=== PATIENT | male | born 1960 | race Two or more races ===

== ENCOUNTER 2022-09-25 11:28 | Observation (INO) ==
--- NOTE | 2022-09-25 12:43 | DR.EXTPAIN ---
HPI Time seen Time Seen by Provider: 09/25/22 12:41 PCP Primary Care Physician: ADRI ESPINOZA HPI Comment HPI Comment: A 62 y/o malepresenting with c/o RUQ pain since about 0200 hrs. yesterday, THis is described as sharp and throbing but with no radiation. He denies nausea or vomiting. He has had poor appetite since yesterday. Complaint/Symptoms Chief Complaint:: PT C/O ABDOMINAL PAIN AT RUQ, NO BM X2 DAYS, POOR APPETITE Self Treatment fo Chief Complaint: PT HAS TAKEN A PEPCID 20 MG THIS MORNING WELL HIS REGULAR MEDS COVID-19 Coronavirus risk:travel/contact w/high risk person: No Has patient experienced Coronavirus symptoms: No Nurses notes reviewed Nurses Notes Review: Yes Source History Provided: Patient and Family Member Mode of arrival Mode of Arrival: Ambulatory Timing Onset of Chief Complaint: 09/24/22 Context History of: None Associated signs and symptoms Associated Signs and Symptoms: None PMH PMH Past Medical History: Yes Past Medical History: Arthritis, GERD and Hypertension Past Surgical History: No Family History History of Family Medical Conditions: No Social History Does patient currently use any type of tobacco product: No Have you used tobacco products in the last 12 months: No Does any household member use tobacco: No Alcohol Use: None Do you use any recreational Drugs:: No Lives With: Spouse and Family Lives Where: Home Travel Risk Coronavirus risk:travel/contact w/high risk person: No Has patient experienced Coronavirus symptoms: No Infectious screening In the last 2 months have you had wt loss of >10#?: NO Have you had fever, night sweats or hemotysis?: No Have you traveled outside the country in the last 6 months?: No Isolation: Standard ROS Review of Systems Constitutional: No Symptoms Reported Eyes: No Symptoms Reported ENTM: No Symptoms Reported Respiratoy: No Symptoms Reported Cardiovascular: No Symptoms Reported Gastrointestinal/Abdominal: Abdominal Pain Genitourinary: No Symptoms Reported Neurological: No Symptoms Reported Musculoskeletal: No Symptoms Reported Integumentary: No Symptoms Reported Hematologic/Lymphatic: No Symptoms Reported Endocrine: No Symptoms Reported Psychiatric: No Symptoms Reported All Other Systems: Reviewed and Negative PE Vital Signs Vitals: Temperature 99.2 F Pulse Rate 86 Respiratory Rate 18 Blood Pressure [Right Arm] 183/86 Blood Pressure 130/68 O2 Sat by Pulse Oximetry 97 General Limitations: No Limitations General Appearance: Alert and In No Apparent Distress Head Head Exam: Normal Inspection, Atraumatic and Normocephalic Eyes Eye exam: Normal Appearance and EOMI ENT ENT Exam: Normal Exam, Normal Oropharynx, Normal External Ear Exam and Mucous Membranes Moist Neck Neck Exam: Normal Inspection, Full ROM and Trachea Midline Chest Chest Inspection: Normal Inspection and Symmetric Chest Wall Rise Respiratory Respiratory Exam: Normal Lung Sounds Bilat Cardiovascular Cardiovascular Exam: Regular Rate, Normal Rhythm, Normal Heart Sounds, +S1 and +S2 Abdominal Exam Abdominal Exam: Normal Inspection, Normal Bowel Sounds, Soft and Tenderness; negative Distention, Guarding, Rebound, Rigidity, Dimnished Bowel Sounds, Hyperactive Bowel Sounds, Hypoactive Bowel Sounds, Organomegaly, Trauma, Incision, Ascites, Mass, Bruit, Pulsatile Mass or Hernia Abdominal Tenderness: RUQ Extremities Extremities Exam: Normal Inspection and Full ROM Back Back Exam: Normal Inspection and Full ROM Neurological Neurological Exam: Alert, Oriented X3 and CN II-XII Intact Psychiatric Psychiatric Exam: Normal Affect and Normal Mood Skin Skin Exam: Dry, Intact and Normal Color COURSE Treatment Treatment: His labs. were reviewed with him and his spouse. Ihad spoken with Dr. Freeman to admit and have Dr. Bateman consult but I was speaking with Dr. Bateman, he disagreed with this and asked that the pt. be admited to him and that he would take care of him (the pt.). Reevaluation 1st: Unchanged Education/Counseling Education/Counseling: Patient, Family, Education and Counseling Educated On: Treatment, Diagnosis, Prognosis and Needs for Follow Up ROR Labs Reviewed Result Diagrams: 09/25/22 13:34 09/25/22 13:34 Laboratory: WBC 16.1 X10^3/uL (3.6-10.0) H 09/25/22 13:34 RBC 4.99 X10^6/uL (4.7-6.0) 09/25/22 13:34 Hgb 13.7 g/dL (13.5-18.0) 09/25/22 13:34 Hct 40.9 % (42.0-54.0) L 09/25/22 13:34 MCV 81.9 fL (80.0-100.0) 09/25/22 13:34 MCH 27.5 pg (27.0-34.0) 09/25/22 13:34 MCHC 33.6 g/dL (33.0-35.0) 09/25/22 13:34 RDW 14.4 % (11.6-16.5) 09/25/22 13:34 Plt Count 262 X10^3/uL (150.0-450.0) 09/25/22 13:34 MPV 7.9 fL (7.4-11.0) 09/25/22 13:34 Neut % (Auto) 73.9 % (42.0-75.0) 09/25/22 13:34 Lymph % (Auto) 13.6 % (21.0-51.0) L 09/25/22 13:34 [place] % (Auto) 10.7 % (0.0-13.0) 09/25/22 13:34 Eos % (Auto) 1.3 % (0.9-2.9) 09/25/22 13:34 Baso % (Auto) 0.5 % (0.2-1.0) 09/25/22 13:34 Neut # (Auto) 11.9 x10^3/uL (2.2-4.8) H 09/25/22 13:34 Lymph # (Auto) 2.2 X10^3/uL (1.3-2.9) 09/25/22 13:34 [place] # (Auto) 1.7 x10^3/uL (0.3-0.8) H 09/25/22 13:34 Eos # (Auto) 0.2 x10^3/uL (0.0-0.2) 09/25/22 13:34 Baso # (Auto) 0.1 X10^3/uL (0.0-0.1) 09/25/22 13:34 Absolute Nucleated RBC 0.0 /100WBC 09/25/22 13:34 Sodium 134 mmol/L (136-145) L 09/25/22 13:34 Corrected Sodium TNP 09/25/22 13:34 Potassium 3.5 mmol/L (3.5-5.1) 09/25/22 13:34 Chloride 98 mmol/L (98-107) 09/25/22 13:34 Carbon Dioxide 30.0 mmol/L (21-32) 09/25/22 13:34 BUN 13 mg/dL (7-18) 09/25/22 13:34 Creatinine 1.13 mg/dL (0.70-1.30) 09/25/22 13:34 Est GFR (MDRD) Af Amer > 60 (>60) 09/25/22 13:34 Est GFR (MDRD) Non-Af > 60 (>60) 09/25/22 13:34 Glucose 95 mg/dL (65-99) 09/25/22 13:34 Calcium 8.6 mg/dL (8.5-10.1) 09/25/22 13:34 Corrected Calcium TNP 09/25/22 13:34 Total Bilirubin 0.80 mg/dL (0.2-1.0) 09/25/22 13:34 AST 81 Units/L (15-37) H 09/25/22 13:34 ALT 87 Units/L (12-78) H 09/25/22 13:34 Alkaline Phosphatase 107 Units/L (46-116) 09/25/22 13:34 Total Protein 7.6 g/dL (6.4-8.2) 09/25/22 13:34 Albumin 3.5 g/dL (3.4-5.0) 09/25/22 13:34 Globulin 4.1 g/dL (2.5-4.5) 09/25/22 13:34 Albumin/Globulin Ratio 0.9 Ratio (1.1-2.1) L 09/25/22 13:34 Specimen Type Clean catch urine 09/25/22 13:15 Urine Color Dark yellow (YELLOW) 09/25/22 13:15 Urine Appearance Clear (CLEAR) 09/25/22 13:15 Urine pH 6.0 (5.0 - 8.0) 09/25/22 13:15 Ur Specific [place] 1.020 (1.000-1.030) 09/25/22 13:15 Urine Protein 2+ (NEGATIVE) 09/25/22 13:15 Urine Glucose (UA) Negative (NEGATIVE) 09/25/22 13:15 Urine Ketones Negative (NEGATIVE) 09/25/22 13:15 Urine Blood 1+ (NEGATIVE) 09/25/22 13:15 Urine Nitrite Negative (NEGATIVE) 09/25/22 13:15 Urine Bilirubin Negative (NEGATIVE) 09/25/22 13:15 Urine Urobilinogen 2+ (NORMAL) 09/25/22 13:15 Ur Leukocyte Esterase Negative (NEGATIVE) 09/25/22 13:15 Urine RBC 0-2 /HPF (0-3) 09/25/22 13:15 Urine WBC 0-2 /HPF (0-5) 09/25/22 13:15 Ur Squamous Epith Cells Few /HPF (NEGATIVE) 09/25/22 13:15 Urine Bacteria Trace /HPF (NEGATIVE) 09/25/22 13:15 Urine Mucus Few /HPF (NEGATIVE) 09/25/22 13:15 Ur Culture Indicated? No/not indicated 09/25/22 13:15 Opioid Opioid Risk Tool Age (Girish box if 16-45): No History of Preadolescent Sexual Abuse: No Total: 0 Total Score Risk Category: Low Risk Copyright: Cristian BENITEZ predicting aberrant behaviors Discharge Plan Diagnosis Discharge Problem: Acute cholecystitis Discharge Plan Patient Disposition: ADMITTED INPATIENT Condition: Stable Prescriptions: No Action hydrochlorothiazide 12.5 mg capsule 1 cap PO QDAY olmesartan 40 mg tablet 1 tab PO QDAY metoprolol tartrate 25 mg tablet 1 tab PO BID Health Concerns: Post Hospitalization: new medications and changes needed to prevent readmission or further decline. Pt educated and given instructions on all concerns. Plan of Treatment: Continue with present treatment and follow up plan. Pt is to keep follow up appointment as instructed and take medications as ordered. Orders to Discharge Patient Discharge Orders: Discharge (Routine); Ordered 09/25/22 Ordered By: REJI BAUTISTA Transfer (Routine); Ordered 09/25/22 Ordered By: REJI BAUTISTA Follow ups/Referrals Follow ups/Referrals: Agnes SANABRIA [Primary Care Provider] - 3 days ADDITIONAL NOTES Additional Notes Additional Notes: Name: Juana CRUZ#: [id number]: [id number]: 1960ex: MLocation: EROrder Number(s): [id number](s):ABDOMEN/PELVIS W/O CON Ordering Physician: REJI BAUTISTA Primary Care: Agnes SANABRIA Service Date: 09/25/22 Service Time: 1301 HISTORY right side abd pains STUDY CT ABDOMEN/PELVIS W/O CON COMPARISON July 27, [address] was acquired from the lung bases through the pelvis without IV contrast; multiplaner reformats are generated from the original axial data. FINDINGS Hypostatic atelectatic lung changes. No pericardial effusion or significant pleural effusion identified. Distended gallbladder with wall thickening and pericholecystic stranding consistent with acute cholecystitis. Noncontrast liver attenuation is predominantly homogeneous. No intrahepatic biliary dilatation is identified. The spleen is normal in size and attenuation. Normal attenuation of the pancreas with no inflammatory changes Adrenal glands are symmetric. No radiopaque stones or hydronephrosis of the right or left kidney. Exophytic cyst of the lower pole the right kidney measures 4.7 cm. Secondary sub cm exophytic cyst is observed at the midpole the right kidney. No evidence of bowel obstruction. Mild diverticular disease of the colon without active inflammatory changes The appendix is normal.. The aorta is normal in caliber. There are no enlarged intraabdominal lymph nodes. The bladder is normal in morphology. No asymmetric wall thickening. The prostate gland is average size for age. No free fluid or pelvic lymphadenopathy. No aggressive bony lesions or acute osseous pathology. IMPRESSION Imaging findings compatible with acute cholecystitis Colonic diverticulosis without diverticulitis Right renal cysts Radiation dose reduction was achieved through individualized adjustment of kVP and/or mA, through adaptive statistical iterative reconstruction, and/or through automated tube current modulation. Electronically signed by: SRINIVAS SALAS (Sep 25, 2022 13:51:43) Report Electronically signed: 09/25/22 [id number] CC: Reji Bautista
[2022-09-25] MEDS ORDERED: NS 1,000 ML IV 1,000 ML IV ONE (13:09)
[2022-09-25] MEDS ORDERED: NS 1,000 ML IV 1,000 ML ONE ×2 (13:17→14:56)
[2022-09-25 13:46] LABS: BILIRUBIN,URINE NEGATIVE (NEGATIVE); BLOOD/HEMOGLOBIN,URINE 1+ (NEGATIVE); GLUCOSE, URINE NEGATIVE (NEGATIVE); KETONES,URINE NEGATIVE (NEGATIVE); LEUKOCYTE ESTERASE ,URINE NEGATIVE (NEGATIVE); NITRITES,URINE NEGATIVE (NEGATIVE); PROTEIN,URINE 2+ (NEGATIVE); UROBILINOGEN,URINE 2+ (NORMAL)
[2022-09-25 13:46] LABS: BASOPHILS # (AUTO) 0.1 X10^3/uL (0.0-0.1); BASOPHILS % (AUTO) 0.5 % (0.2-1.0); EOSINOPHILS # (AUTO) 0.2 x10^3/uL (0.0-0.2); EOSINOPHILS % (AUTO) 1.3 % (0.9-2.9); HEMATOCRIT 40.9 % (42.0-54.0); HEMOGLOBIN 13.7 g/dL (13.5-18.0); LYMPHOCYTES # (AUTO) 2.2 X10^3/uL (1.3-2.9); LYMPHOCYTES % (AUTO) 13.6 % (21.0-51.0); MEAN CORPUSCULAR HEMOGLOBIN 27.5 pg (27.0-34.0); MEAN CORPUSCULAR HGB CONC 33.6 g/dL (33.0-35.0); MEAN CORPUSCULAR VOLUME 81.9 fL (80.0-100.0); MEAN PLATELET VOLUME 7.9 fL (7.4-11.0); MONOCYTES # (AUTO) 1.7 x10^3/uL (0.3-0.8); MONOCYTES % (AUTO) 10.7 % (0.0-13.0); NEUTROPHILS # (AUTO) 11.9 x10^3/uL (2.2-4.8); NEUTROPHILS % (AUTO) 73.9 % (42.0-75.0); RED BLOOD COUNT 4.99 X10^6/uL (4.7-6.0); RED CELL DISTRIBUTION WIDTH 14.4 % (11.6-16.5); WHITE BLOOD COUNT 16.1 X10^3/uL (3.6-10.0)
--- NOTE | 2022-09-25 13:52 | CT ---
HISTORYright side abd painsSTUDYCT ABDOMEN/PELVIS W/O CONCOMPARISONNovember 2021TECHNIQUEAxial CT was acquired from the lung bases through the pelvis without IV contrast; multiplaner reformats are generated from the original axial data.FINDINGSHypostatic atelectatic lung changes. No pericardial effusion or significant pleural effusion identified.Distended gallbladder with wall thickening and pericholecystic stranding consistent with acute cholecystitis. Noncontrast liver attenuation is predominantly homogeneous. No intrahepatic biliary dilatation is identified.The spleen is normal in size and attenuation.Normal attenuation of the pancreas with no inflammatory changesAdrenal glands are symmetric.No radiopaque stones or hydronephrosis of the right or left kidney. Exophytic cyst of the lower pole the right kidney measures 4.7 cm. Secondary sub cm exophytic cyst is observed at the midpole the right kidney.No evidence of bowel obstruction. Mild diverticular disease of the colon without active inflammatory changesThe appendix is normal..The aorta is normal in caliber. There are no enlarged intraabdominal lymph nodes.The bladder is normal in morphology. No asymmetric wall thickening.The prostate gland is average size for age.No free fluid or pelvic lymphadenopathy.No aggressive bony lesions or acute osseous pathology.IMPRESSIONImaging findings compatible with acute cholecystitisColonic diverticulosis without diverticulitisRight renal cystsRadiation dose reduction was achieved through individualized adjustment of kVP and/or mA, through adaptive statistical iterative reconstruction, and/or through automated tube current modulation.Electronically signed by: SRINIVAS SALAS (Sep 25, 2022 13:51:43)
[2022-09-25 13:56] LABS: APPEARANCE,URINE CLEAR (CLEAR); BACTERIA,URINE TRACE /HPF (NEGATIVE); COLOR,URINE DARK YELLOW (YELLOW); RBC,URINE 0-2 /HPF (0-3); SQUAMOUS EPITHELIAL CELL,UR FEW /HPF (NEGATIVE)
[2022-09-25 13:59] LABS: ALANINE AMINOTRANSFERASE 87 Units/L (12-78); ALBUMIN 3.5 g/dL (3.4-5.0); ALKALINE PHOSPHATASE 107 Units/L (46-116); ASPARTATE AMINO TRANSFERASE 81 Units/L (15-37); BLOOD UREA NITROGEN 13 mg/dL (7-18); CALCIUM 8.6 mg/dL (8.5-10.1); CHLORIDE 98 mmol/L (98-107); CREATININE 1.13 mg/dL (0.70-1.30); SODIUM 134 mmol/L (136-145); TOTAL PROTEIN 7.6 g/dL (6.4-8.2); eGFR NON BLACK RACES > 60 (>60)
[2022-09-25] MEDS ORDERED: DEMEROL INJ IVP PRN (14:28)
[2022-09-25] MEDS ORDERED: ZOFRAN INJ 4 MG VIAL IVP PRN (14:28)
[2022-09-25] MEDS: NS 1,000 ML IV 1,000 ML IV SCH (15:03)
[2022-09-25] MEDS ORDERED: INVanz INJ 1 GRAM VIAL 1 G in NS 100 ML IV 100 ML IV SCH (15:11)
[2022-09-25] MEDS ORDERED: INVanz INJ 1 GRAM VIAL ONE (15:12)
[2022-09-25] MEDS ORDERED: NS 50 ML IV 50 ML IV ONE (15:13)
[2022-09-25 15:54] VITALS: BMI 32.5
[2022-09-25] MEDS ORDERED: TYLENOL 500 MG TAB EXTRA STRENGTH PO PRN (18:01)
[2022-09-25] MEDS: LOPRESSOR TAB 25 MG PO SCH (20:32)
--- NOTE | 2022-09-25 23:50 | DR.H&P ---
H&P History & Physical for Day of: H&P Date: 09/25/22 Chief Complaint Chief Complaint: RUQ pain with nausea. Allergies Allergies Allergy/AdvReac Type Severity Reaction Status Date / Time Penicillins Allergy Verified 07/27/22 08:29 History of Present Illness History of Present Illness: This is a 62 year old male who presented to the emergency room complaining of right upper quadrant pain with nausea. He was evaluated in July of [address] scan at that time of the abdomen was normal. This evaluation the CT scan is consistent with acute c holecystitis. Past Medical History Past Medical History: Arthritis, GERD and Hypertension Social History Does patient currently use any type of tobacco product: No Have you used tobacco products in the last 12 months: No Type of Tobacco Use: Cigarettes Does any household member use tobacco: No Alcohol Use: None Drug Use: None Medications Home Medications: Penicillins Allergy (Verified 07/27/22 08:29) Labs Result Diagrams: 09/25/22 13:34 09/25/22 13:34 Labs: Laboratory WBC 16.1 X10^3/uL (3.6-10.0) H 09/25/22 13:34 RBC 4.99 X10^6/uL (4.7-6.0) 09/25/22 13:34 Hgb 13.7 g/dL (13.5-18.0) 09/25/22 13:34 Hct 40.9 % (42.0-54.0) L 09/25/22 13:34 MCV 81.9 fL (80.0-100.0) 09/25/22 13:34 MCH 27.5 pg (27.0-34.0) 09/25/22 13:34 MCHC 33.6 g/dL (33.0-35.0) 09/25/22 13:34 RDW 14.4 % (11.6-16.5) 09/25/22 13:34 Plt Count 262 X10^3/uL (150.0-450.0) 09/25/22 13:34 MPV 7.9 fL (7.4-11.0) 09/25/22 13:34 Neut % (Auto) 73.9 % (42.0-75.0) 09/25/22 13:34 Lymph % (Auto) 13.6 % (21.0-51.0) L 09/25/22 13:34 [place] % (Auto) 10.7 % (0.0-13.0) 09/25/22 13:34 Eos % (Auto) 1.3 % (0.9-2.9) 09/25/22 13:34 Baso % (Auto) 0.5 % (0.2-1.0) 09/25/22 13:34 Neut # (Auto) 11.9 x10^3/uL (2.2-4.8) H 09/25/22 13:34 Lymph # (Auto) 2.2 X10^3/uL (1.3-2.9) 09/25/22 13:34 [place] # (Auto) 1.7 x10^3/uL (0.3-0.8) H 09/25/22 13:34 Eos # (Auto) 0.2 x10^3/uL (0.0-0.2) 09/25/22 13:34 Baso # (Auto) 0.1 X10^3/uL (0.0-0.1) 09/25/22 13:34 Absolute Nucleated RBC 0.0 /100WBC 09/25/22 13:34 Sodium 134 mmol/L (136-145) L 09/25/22 13:34 Corrected Sodium TNP 09/25/22 13:34 Potassium 3.5 mmol/L (3.5-5.1) 09/25/22 13:34 Chloride 98 mmol/L (98-107) 09/25/22 13:34 Carbon Dioxide 30.0 mmol/L (21-32) 09/25/22 13:34 BUN 13 mg/dL (7-18) 09/25/22 13:34 Creatinine 1.13 mg/dL (0.70-1.30) 09/25/22 13:34 Est GFR (MDRD) Af Amer > 60 (>60) 09/25/22 13:34 Est GFR (MDRD) Non-Af > 60 (>60) 09/25/22 13:34 Glucose 95 mg/dL (65-99) 09/25/22 13:34 Calcium 8.6 mg/dL (8.5-10.1) 09/25/22 13:34 Corrected Calcium TNP 09/25/22 13:34 Total Bilirubin 0.80 mg/dL (0.2-1.0) 09/25/22 13:34 AST 81 Units/L (15-37) H 09/25/22 13:34 ALT 87 Units/L (12-78) H 09/25/22 13:34 Alkaline Phosphatase 107 Units/L (46-116) 09/25/22 13:34 Total Protein 7.6 g/dL (6.4-8.2) 09/25/22 13:34 Albumin 3.5 g/dL (3.4-5.0) 09/25/22 13:34 Globulin 4.1 g/dL (2.5-4.5) 09/25/22 13:34 Albumin/Globulin Ratio 0.9 Ratio (1.1-2.1) L 09/25/22 13:34 Specimen Type Clean catch urine 09/25/22 13:15 Urine Color Dark yellow (YELLOW) 09/25/22 13:15 Urine Appearance Clear (CLEAR) 09/25/22 13:15 Urine pH 6.0 (5.0 - 8.0) 09/25/22 13:15 Ur Specific [place] 1.020 (1.000-1.030) 09/25/22 13:15 Urine Protein 2+ (NEGATIVE) 09/25/22 13:15 Urine Glucose (UA) Negative (NEGATIVE) 09/25/22 13:15 Urine Ketones Negative (NEGATIVE) 09/25/22 13:15 Urine Blood 1+ (NEGATIVE) 09/25/22 13:15 Urine Nitrite Negative (NEGATIVE) 09/25/22 13:15 Urine Bilirubin Negative (NEGATIVE) 09/25/22 13:15 Urine Urobilinogen 2+ (NORMAL) 09/25/22 13:15 Ur Leukocyte Esterase Negative (NEGATIVE) 09/25/22 13:15 Urine RBC 0-2 /HPF (0-3) 09/25/22 13:15 Urine WBC 0-2 /HPF (0-5) 09/25/22 13:15 Ur Squamous Epith Cells Few /HPF (NEGATIVE) 09/25/22 13:15 Urine Bacteria Trace /HPF (NEGATIVE) 09/25/22 13:15 Urine Mucus Few /HPF (NEGATIVE) 09/25/22 13:15 Ur Culture Indicated? No/not indicated 09/25/22 13:15 Review of Systems Constitutional: See HPI Eyes: No Symptoms Reported ENT: No Symptoms Reported Respiratory: No Symptoms Reported Cardiovascular: No Symptoms Reported Gastrointestinal: No Symptoms Reported Genitourinary: No Symptoms Reported Musculoskeletal: No Symptoms Reported Skin: No Symptoms Reported Neurological: No Symptoms Reported Physical Exam Vital Signs: Temperature 98.5 F Pulse Rate [Left Brachial] 73 Pulse Rate 86 Respiratory Rate 20 Blood Pressure [Right Arm] 136/77 Blood Pressure 130/68 O2 Sat by Pulse Oximetry 97 Oriented: Normal, Time, Person and Place Eyes: Normal Ear: Normal Nose: Normal Throat: Normal Respiratory: Clear Throughout Cardiovascular: Normal : Normal Auscultation: Bowel Sounds: Normal Palpation: Normal Tenderness: RUQ Skin: Normal Musculoskeletal: Normal Psychiatric: Normal Mood Description: Calm Affect: Normal Speech Pattern: Clear Assessment/Plan (1) Acute cholecystitis: Status: Acute Plan: IV antibiotics now and plan laparoscopic cholecystectomy tomorrow , 09/26/2022.Procedure, risk, and benefits described to the patient and his . They understand the small possibility of having to convert to an open operation and the small possibility of bile duct injury. They understand and agree to proc eed.. Review H&P Reviewed: Yes Patient was examined?: Yes
[2022-09-26] MEDS: NS 1,000 ML IV 1,000 ML IV SCH ×4 (01:00→22:54)
[2022-09-26] MEDS: DILAUDID INJ IVP PRN ×3 (04:41→22:53)
[2022-09-26 06:03] LABS: BASOPHILS # (AUTO) 0.1 X10^3/uL (0.0-0.1); BASOPHILS % (AUTO) 0.5 % (0.2-1.0); EOSINOPHILS # (AUTO) 0.4 x10^3/uL (0.0-0.2); EOSINOPHILS % (AUTO) 2.9 % (0.9-2.9); HEMATOCRIT 36.8 % (42.0-54.0); HEMOGLOBIN 12.3 g/dL (13.5-18.0); LYMPHOCYTES # (AUTO) 2.2 X10^3/uL (1.3-2.9); LYMPHOCYTES % (AUTO) 16.3 % (21.0-51.0); MEAN CORPUSCULAR HEMOGLOBIN 27.4 pg (27.0-34.0); MEAN CORPUSCULAR HGB CONC 33.4 g/dL (33.0-35.0); MEAN PLATELET VOLUME 8.4 fL (7.4-11.0); MONOCYTES # (AUTO) 1.1 x10^3/uL (0.3-0.8); MONOCYTES % (AUTO) 8.4 % (0.0-13.0); NEUTROPHILS # (AUTO) 9.8 x10^3/uL (2.2-4.8); NEUTROPHILS % (AUTO) 71.9 % (42.0-75.0); RED BLOOD COUNT 4.49 X10^6/uL (4.7-6.0); RED CELL DISTRIBUTION WIDTH 14.3 % (11.6-16.5); WHITE BLOOD COUNT 13.6 X10^3/uL (3.6-10.0)
[2022-09-26 06:15] LABS: ALANINE AMINOTRANSFERASE 99 Units/L (12-78); ALBUMIN 2.8 g/dL (3.4-5.0); ALKALINE PHOSPHATASE 128 Units/L (46-116); ASPARTATE AMINO TRANSFERASE 71 Units/L (15-37); BLOOD UREA NITROGEN 13 mg/dL (7-18); CALCIUM 7.9 mg/dL (8.5-10.1); CARBON DIOXIDE 26.5 mmol/L (21-32); CHLORIDE 103 mmol/L (98-107); COR CA(FOR HYPOALB) 8.9 mg/dL (8.5-10.1); CREATININE 0.97 mg/dL (0.70-1.30); SODIUM 137 mmol/L (136-145); TOTAL PROTEIN 6.4 g/dL (6.4-8.2); eGFR NON BLACK RACES > 60 (>60)
[2022-09-26] MEDS ORDERED: INVanz INJ 1 GRAM VIAL 1 G in NS 100 ML IV 100 ML IV SCH (09:00)
--- NOTE | 2022-09-26 10:17 | EKG ---
Test Reason : pre op Blood Pressure : */* mmHG Vent. Rate : 82 BPM Atrial Rate : 82 BPM P-R Int : 148 ms QRS Dur : 100 ms QT Int : 356 ms P-R-T Axes : 9 65 9 degrees QTc Int : 415 ms Normal sinus rhythm Normal ECG No previous ECGs available Confirmed by Sterling Mendoza ([id number]) on 09/27/2022 8:18:13 AM Referred By: Confirmed By: Sterling Mendoza
--- NOTE | 2022-09-26 10:34 | RAD ---
HISTORYPRE OP FOR GB SX HTN. GERDSTUDYCHEST, 1 VIEWCOMPARISONNone available.FINDINGSThe trachea is midline. The cardiac silhouette is unremarkable. The lungs are clear without focal infiltrate or effusion. The bony thorax is unremarkable.IMPRESSIONNo acute cardiopulmonary findings .Electronically signed by: KRISTINA GARDINER III (Sep 26, 2022 10:33:26)
[2022-09-26] MEDS ORDERED: ULTANE GAS IN ONE (12:24)
[2022-09-26] MEDS ORDERED: BENADRYL INJ 50 MG VIAL IVP PRN (14:00)
[2022-09-26] MEDS ORDERED: DILAUDID INJ IVP PRN (14:00)
[2022-09-26] MEDS ORDERED: BARHEMSYS INJ IVP PRN (14:00)
[2022-09-26] MEDS ORDERED: ZOFRAN INJ 4 MG VIAL IVP PRN (14:00)
[2022-09-26] MEDS ORDERED: REGLAN INJ 10 MG VIAL IVP PRN (14:00)
[2022-09-26] MEDS ORDERED: MARCAINE 0.5% ONE (14:12)
[2022-09-26] MEDS ORDERED: DIPRIVAN VIAL 20 ML ONE (14:12)
[2022-09-26] MEDS ORDERED: LR 1,000 ML IV 1,000 ML IV ONE (14:12)
[2022-09-26] MEDS ORDERED: PEPCID 20 MG VIAL ONE (14:13)
[2022-09-26] MEDS ORDERED: QUELICIN (OR ANECTINE) ONE (14:13)
[2022-09-26] MEDS ORDERED: ZEMURON 100 MG VIAL ONE (14:13)
[2022-09-26] MEDS ORDERED: MAGNESIUM SULFATE 50% INJ VIAL ONE (14:13)
[2022-09-26] MEDS ORDERED: FENTANYL VIAL INJ 100 mcg ONE ×2 (14:14→15:48)
[2022-09-26] MEDS ORDERED: PRECEDEX INJ VIAL IVP ONE (14:14)
[2022-09-26] MEDS ORDERED: CLEOCIN 600 MG IV PREMIX 600 MG/50 ML BAG IV ONE (14:25)
[2022-09-26] MEDS ORDERED: BRIDION ONE (15:38)
--- NOTE | 2022-09-26 16:09 | OR.IMMED ---
IMMEDIATE POST-OP NOTE Immediate Post-Op Note Pre-Op Diagnosis: acute cholecystitis Post-Op Diagnosis: cholelithiasis and acute cholecystitis. Very inflammed Procedure: laparoscopic cholecystectomy , difficult case Description of Procedure: see operative summary Surgeon/Border Guard: Ashely Findings: severely acute cholecystitis with cholelithaisis Specimens Removed: gallbladder Estimated Blood Loss: 150 cc Drains: Silver Mcgrath Progress Notes: to floor, po pain control, begin diet, CBC and LFTs in AM. Final Diagnosis: as above
[2022-09-26] MEDS: BENICAR TAB 40 MG PO SCH (17:14)
[2022-09-26] MEDS: LOPRESSOR TAB 25 MG PO SCH ×2 (17:14→20:21)
[2022-09-26] MEDS ORDERED: SUPRANE ONE (17:34)
[2022-09-26] MEDS: CIPRO TAB 500 MG PO SCH (20:21)
[2022-09-27] MEDS: PERCOCET TAB 5/325 MG PO PRN ×2 (01:58→11:04)
[2022-09-27 05:47] LABS: BASOPHILS % (AUTO) 0.1 % (0.2-1.0); EOSINOPHILS % (AUTO) 0.2 % (0.9-2.9); HEMATOCRIT 33.4 % (42.0-54.0); HEMOGLOBIN 11.3 g/dL (13.5-18.0); LYMPHOCYTES # (AUTO) 0.7 X10^3/uL (1.3-2.9); LYMPHOCYTES % (AUTO) 5.7 % (21.0-51.0); MEAN CORPUSCULAR HEMOGLOBIN 27.6 pg (27.0-34.0); MEAN CORPUSCULAR HGB CONC 33.8 g/dL (33.0-35.0); MEAN CORPUSCULAR VOLUME 81.6 fL (80.0-100.0); MEAN PLATELET VOLUME 8.2 fL (7.4-11.0); MONOCYTES % (AUTO) 7.8 % (0.0-13.0); NEUTROPHILS # (AUTO) 11.3 x10^3/uL (2.2-4.8); NEUTROPHILS % (AUTO) 86.2 % (42.0-75.0); RED BLOOD COUNT 4.09 X10^6/uL (4.7-6.0); RED CELL DISTRIBUTION WIDTH 14.3 % (11.6-16.5); WHITE BLOOD COUNT 13.1 X10^3/uL (3.6-10.0)
[2022-09-27 05:56] LABS: BLOOD UREA NITROGEN 13 mg/dL (7-18); CALCIUM 7.7 mg/dL (8.5-10.1); CARBON DIOXIDE 24.6 mmol/L (21-32); CHLORIDE 105 mmol/L (98-107); COR NA(FOR HYPERGLY) 140 mmol/L (136-145); CREATININE 0.92 mg/dL (0.70-1.30); SODIUM 139 mmol/L (136-145); eGFR NON BLACK RACES > 60 (>60)
[2022-09-27] MEDS: NS 1,000 ML IV 1,000 ML IV SCH (06:00)
[2022-09-27 06:24] LABS: ALANINE AMINOTRANSFERASE 176 Units/L (12-78); ALBUMIN 2.5 g/dL (3.4-5.0); ALKALINE PHOSPHATASE 179 Units/L (46-116); ASPARTATE AMINO TRANSFERASE 114 Units/L (15-37); COR CA(FOR HYPOALB) 8.9 mg/dL (8.5-10.1); TOTAL PROTEIN 6.2 g/dL (6.4-8.2)
[2022-09-27 08:16] VITALS: BP 144/77
[2022-09-27] MEDS: BENICAR TAB 40 MG PO SCH (09:09)
[2022-09-27] MEDS: LOPRESSOR TAB 25 MG PO SCH (09:09)
[2022-09-27] MEDS: CIPRO TAB 500 MG PO SCH (09:09)
--- NOTE | 2022-09-27 10:12 | W.DIS.FURT ---
Summary of Discharge Discharge Summary of Date Date of Exam: 09/27/22 Admission Date Date of Admission: 09/25/22 Admission Diagnosis Patient Problems (Updated 09/27/22 @ 10:12 by Luciano Bateman) Acute cholecystitis (Acute) K81.0 Hospital Course: 62 year old male admitted on September 25 with right upper quadrant pain and tenderness. CT scan consistent with acute cholecystitis. Patient admitted and p laced on IV antibiotics and on September 26 underwent laparoscopic cholecystectomy. He had extensive cholecystitis. He has done well postoperatively and will be discharged home. F/U hemoglobin is normal and LFTs elevated with normal bilirubin consistent with inflammaion form his extensive cholecystitis. Vital Signs: Vital Signs (72 hours) 09/25/22 11:34 09/25/22 15:28 09/25/22 15:08 Temperature 99.2 F Pulse Rate 86 Pulse Rate [Left Brachial] Respiratory Rate 18 18 Blood Pressure 130/68 Blood Pressure [Right Arm] O2 Sat by Pulse Oximetry 97 100 Oxygen Delivery Method Room Air Room Air Room Air 09/25/22 16:00 09/25/22 18:20 09/25/22 19:00 Temperature 98.6 F Pulse Rate Pulse Rate [Left Brachial] 83 Respiratory Rate 18 18 Blood Pressure Blood Pressure [Right Arm] 133/78 O2 Sat by Pulse Oximetry 98 Oxygen Delivery Method Room Air Room Air 09/25/22 19:20 09/26/22 04:41 09/25/22 20:00 Temperature 98.5 F Pulse Rate Pulse Rate [Left Brachial] 73 Respiratory Rate 18 20 20 Blood Pressure Blood Pressure [Right Arm] 136/77 O2 Sat by Pulse Oximetry 97 Oxygen Delivery Method Room Air 09/26/22 00:00 09/26/22 04:00 09/26/22 05:11 Temperature 99.7 F H 99.9 F H Pulse Rate Pulse Rate [Left Brachial] 73 84 Respiratory Rate 20 20 20 Blood Pressure Blood Pressure [Right Arm] 125/72 117/67 O2 Sat by Pulse Oximetry 97 97 Oxygen Delivery Method Room Air Room Air 09/26/22 05:29 09/26/22 08:00 09/26/22 07:00 Temperature 99.2 F Pulse Rate Pulse Rate [Left Brachial] 88 Respiratory Rate 20 Blood Pressure Blood Pressure [Right Arm] 133/68 127/75 O2 Sat by Pulse Oximetry 97 Oxygen Delivery Method Room Air Room Air 09/26/22 14:21 09/26/22 14:23 09/26/22 15:59 Temperature 98.0 F Pulse Rate 92 H 85 Pulse Rate [Left Brachial] Respiratory Rate 18 17 18 Blood Pressure 138/79 103/56 Blood Pressure [Right Arm] O2 Sat by Pulse Oximetry 94 L 98 Oxygen Delivery Method Room Air Aerosol Face Tent 09/26/22 16:11 09/26/22 16:16 09/26/22 16:26 Temperature Pulse Rate 87 90 86 Pulse Rate [Left Brachial] Respiratory Rate 18 18 18 Blood Pressure 109/59 111/60 105/57 Blood Pressure [Right Arm] O2 Sat by Pulse Oximetry 96 93 L 94 L Oxygen Delivery Method Room Air Room Air Room Air 09/26/22 16:01 09/26/22 16:21 09/26/22 12:00 Temperature 99.2 F Pulse Rate 94 H 86 Pulse Rate [Left Brachial] 93 H Respiratory Rate 18 18 20 Blood Pressure 106/57 103/57 Blood Pressure [Right Arm] 143/78 O2 Sat by Pulse Oximetry 96 95 97 Oxygen Delivery Method Aerosol Face Tent Room Air Room Air 09/26/22 16:35 09/26/22 16:50 09/26/22 17:05 Temperature 97.5 F L 98.5 F Pulse Rate Pulse Rate [Left Brachial] 85 86 84 Respiratory Rate 20 20 20 Blood Pressure Blood Pressure [Right Arm] 113/60 115/61 119/56 O2 Sat by Pulse Oximetry 96 96 97 Oxygen Delivery Method Room Air Room Air 09/26/22 17:20 09/26/22 17:35 09/26/22 18:35 Temperature 98.9 F 98.2 F Pulse Rate Pulse Rate [Left Brachial] 84 83 88 Respiratory Rate 18 18 20 Blood Pressure Blood Pressure [Right Arm] 118/63 115/61 134/67 O2 Sat by Pulse Oximetry 96 98 99 Oxygen Delivery Method Room Air Room Air Room Air 09/26/22 19:42 09/26/22 20:00 09/26/22 20:12 Temperature 98.3 F Pulse Rate Pulse Rate [Left Brachial] 85 Respiratory Rate 18 20 20 Blood Pressure Blood Pressure [Right Arm] 112/58 O2 Sat by Pulse Oximetry 99 Oxygen Delivery Method Nasal Cannula 09/26/22 22:53 09/27/22 00:00 09/26/22 19:00 Temperature 98.5 F Pulse Rate Pulse Rate [Left Brachial] 89 Respiratory Rate 18 18 Blood Pressure Blood Pressure [Right Arm] 129/66 O2 Sat by Pulse Oximetry 94 L Oxygen Delivery Method Room Air Room Air 09/26/22 23:23 09/27/22 01:58 09/27/22 02:58 Temperature Pulse Rate Pulse Rate [Left Brachial] Respiratory Rate 18 18 18 Blood Pressure Blood Pressure [Right Arm] O2 Sat by Pulse Oximetry Oxygen Delivery Method 09/27/22 04:00 09/26/22 21:35 09/26/22 20:35 Temperature 99.0 F 98.4 F 98.3 F Pulse Rate Pulse Rate [Left Brachial] 85 86 85 Respiratory Rate 18 18 20 Blood Pressure Blood Pressure [Right Arm] 134/77 131/65 112/58 O2 Sat by Pulse Oximetry 94 L 97 99 Oxygen Delivery Method Room Air Nasal Cannula Nasal Cannula 09/27/22 08:00 Temperature 97.7 F Pulse Rate Pulse Rate [Left Brachial] 88 Respiratory Rate 22 Blood Pressure Blood Pressure [Right Arm] 144/77 O2 Sat by Pulse Oximetry 98 Oxygen Delivery Method Room Air Labs: Laboratory Last Values WBC 13.1 X10^3/uL (3.6-10.0) H 09/27/22 05:01 RBC 4.09 X10^6/uL (4.7-6.0) L 09/27/22 05:01 Hgb 11.3 g/dL (13.5-18.0) L 09/27/22 05:01 Hct 33.4 % (42.0-54.0) L 09/27/22 05:01 MCV 81.6 fL (80.0-100.0) 09/27/22 05:01 MCH 27.6 pg (27.0-34.0) 09/27/22 05:01 MCHC 33.8 g/dL (33.0-35.0) 09/27/22 05:01 RDW 14.3 % (11.6-16.5) 09/27/22 05:01 Plt Count 254 X10^3/uL (150.0-450.0) 09/27/22 05:01 MPV 8.2 fL (7.4-11.0) 09/27/22 05:01 Neut % (Auto) 86.2 % (42.0-75.0) H 09/27/22 05:01 Lymph % (Auto) 5.7 % (21.0-51.0) L 09/27/22 05:01 [place] % (Auto) 7.8 % (0.0-13.0) 09/27/22 05:01 Eos % (Auto) 0.2 % (0.9-2.9) L 09/27/22 05:01 Baso % (Auto) 0.1 % (0.2-1.0) L 09/27/22 05:01 Neut # (Auto) 11.3 x10^3/uL (2.2-4.8) H 09/27/22 05:01 Lymph # (Auto) 0.7 X10^3/uL (1.3-2.9) L 09/27/22 05:01 [place] # (Auto) 1.0 x10^3/uL (0.3-0.8) H 09/27/22 05:01 Eos # (Auto) 0.0 x10^3/uL (0.0-0.2) 09/27/22 05:01 Baso # (Auto) 0.0 X10^3/uL (0.0-0.1) 09/27/22 05:01 Absolute Nucleated RBC 0.0 /100WBC 09/27/22 05:01 Sodium 139 mmol/L (136-145) 09/27/22 05:01 Corrected Sodium 140 mmol/L (136-145) 09/27/22 05:01 Potassium 3.5 mmol/L (3.5-5.1) 09/27/22 05:01 Chloride 105 mmol/L (98-107) 09/27/22 05:01 Carbon Dioxide 24.6 mmol/L (21-32) 09/27/22 05:01 BUN 13 mg/dL (7-18) 09/27/22 05:01 Creatinine 0.92 mg/dL (0.70-1.30) 09/27/22 05:01 Est GFR (MDRD) Af Amer > 60 (>60) 09/27/22 05:01 Est GFR (MDRD) Non-Af > 60 (>60) 09/27/22 05:01 Glucose 127 mg/dL (65-99) H 09/27/22 05:01 Calcium 7.7 mg/dL (8.5-10.1) L 09/27/22 05:01 Corrected Calcium 8.9 mg/dL (8.5-10.1) 09/27/22 05:01 Total Bilirubin 0.90 mg/dL (0.2-1.0) 09/27/22 05:01 AST 114 Units/L (15-37) H 09/27/22 05:01 ALT 176 Units/L (12-78) H 09/27/22 05:01 Alkaline Phosphatase 179 Units/L (46-116) H 09/27/22 05:01 Total Protein 6.2 g/dL (6.4-8.2) L 09/27/22 05:01 Albumin 2.5 g/dL (3.4-5.0) L 09/27/22 05:01 Globulin 3.7 g/dL (2.5-4.5) 09/27/22 05:01 Albumin/Globulin Ratio 0.7 Ratio (1.1-2.1) L 09/27/22 05:01 Specimen Type Clean catch urine 09/25/22 13:15 Urine Color Dark yellow (YELLOW) 09/25/22 13:15 Urine Appearance Clear (CLEAR) 09/25/22 13:15 Urine pH 6.0 (5.0 - 8.0) 09/25/22 13:15 Ur Specific [place] 1.020 (1.000-1.030) 09/25/22 13:15 Urine Protein 2+ (NEGATIVE) 09/25/22 13:15 Urine Glucose (UA) Negative (NEGATIVE) 09/25/22 13:15 Urine Ketones Negative (NEGATIVE) 09/25/22 13:15 Urine Blood 1+ (NEGATIVE) 09/25/22 13:15 Urine Nitrite Negative (NEGATIVE) 09/25/22 13:15 Urine Bilirubin Negative (NEGATIVE) 09/25/22 13:15 Urine Urobilinogen 2+ (NORMAL) 09/25/22 13:15 Ur Leukocyte Esterase Negative (NEGATIVE) 09/25/22 13:15 Urine RBC 0-2 /HPF (0-3) 09/25/22 13:15 Urine WBC 0-2 /HPF (0-5) 09/25/22 13:15 Ur Squamous Epith Cells Few /HPF (NEGATIVE) 09/25/22 13:15 Urine Bacteria Trace /HPF (NEGATIVE) 09/25/22 13:15 Urine Mucus Few /HPF (NEGATIVE) 09/25/22 13:15 Ur Culture Indicated? No/not indicated 09/25/22 13:15 Tissue Pathology To follow 09/26/22 15:28 Reason For Visit: ACUTE CHOLECYSTITIS Discharge Date Discharge Date: 09/27/22 Discharge Diagnosis All Active Problems (Updated 09/27/22 @ 10:12 by Luciano Bateman) Acute cholecystitis (Acute) Plan of Treatment: Continue with present treatment and follow up plan. Pt is to keep follow up appointment as instructed and take medications as ordered. Discharge Medications Discharge Medications: Penicillins Allergy (Verified 07/27/22 08:29) New Prescriptions ciprofloxacin HCl 500 mg tablet (Cipro) 500 mg PO BID #14 tabs 09/27/22 [Rx] oxycodone 5 mg tablet 5 mg PO Q6H PRN #30 tabs 09/27/22 [Rx] Discharge Disposition Assessment: SEE hospital course Discharge Plan Discharge Plan Hospital Course: 62 year old male admitted on September 25 with right upper quadrant pain and tenderness. CT scan consistent with acute cholecystitis. Patient admitted and placed on IV antibiotics and on September 26 underwent laparoscopic cholecystectomy. He had extensive cholecystitis. He has done well postoperatively and will be discharged home. F/U hemoglobin is normal and LFTs elevated with normal bilirubin consistent with inflammaion form his extensive cholecystitis. Patient Disposition: HOME, SELF-CARE Condition: Stable Health Concerns: Post Hospitalization: new medications and changes needed to prevent readmission or further decline. Pt educated and given instructions on all concerns. Care Plan Goals: Problem: Pain/Alteration in Comfort Goal: Improve/ Resolve Pain; Achieve Pain Tolerance Instructions: Take pain medications as prescribed. Contact your primary care provider if your pain is unrelieved or worsens. Follow up with primary care provider as directed. Plan of Treatment: Continue with present treatment and follow up plan. Pt is to keep follow up appointment as instructed and take medications as ordered. Assessment: SEE hospital course Prescription drug monitoring program results: PDMP reviewed and no concerns identified Prescriptions: New oxycodone 5 mg Tablet 5 mg PO Q6H MDD 4 PRNQty: 30 0RF ciprofloxacin HCl [Cipro] 500 mg Tablet 500 mg PO BID Qty: 14 0RF Continued olmesartan [Benicar] 40 mg tablet 1 tab PO QDAY metoprolol tartrate 25 mg tablet 1 tab PO BID Orders to Discharge Patient Discharge Orders: Discharge (Routine); Ordered 09/27/22 Ordered By: Luciano Bateman Follow ups/Referrals Follow ups/Referrals: Luciano Bateman [STAFF PHYSICIAN] - 1 WEEK Instructions Instructions: Laparoscopic Cholecystectomy, Care After, Abdominal Pain, Adult, [id number], Cholecystitis, [id number] Stand Alone Forms: Excuse From Work or School
--- NOTE | 2022-09-27 13:31 | DR.OPNOTE ---
OP NOTE Pre-Op Diagnosis: acute cholecystitis Post-Op Diagnosis: cholelithiasis and acute cholecystitis Procedure Date Date Of Procedure: 09/26/22 Procedure: PROCEDURE: LAPAROSCOPIC APPENDECTOMY NARRATIVE: The patient was taken to the operative suite, placed in supine position and general anesthesia induced. The abdomen was prepped and draped in sterile fashion. Time out for the procedure obtained. A curvilinear 3cm curvilinear incision was made below the umbilicus and dissection carried down to the midline fashion. Holding sutures placed on either side of the midline fascia. Peritoneum incised with a 15 knife blade and peritoneum opened with Metzenbaum scissors. Sultana canula was placed and secured with holding sutures. The abdomen insufflated to 15 mm of mercury with carbon dioxide. Two 5 mm trocars placed along the right costal margin and a 5 mm trocar placed in the epigastrium . Gallbladder was markedly inflamed and covered with omentum. Omentum removed. The gallbladder aspirated of fluid to allow grasping it. It was grasped at the infundibulum and the fundus . There was intense inflammation in Calot's triangle . Blunt dissection carried out identifying the cystic duct and cystic artery. The cystic duct was clipped proximally and distally and divided. The cystic artery also was clipped proximally and distally and divided . However there was a posterior branch which bled and required additional clips. Abdomen was irrigated and suctioned free. Gallbladder removed from the liver bed with blunt and sharp dissection. It was placed in a specimen bag and brought out through the infraumbilical incision. The gallbladder was inspected and opened showing multiple gallstones. No gallstones had been identified on the CT scan. There was intense inflammation . Cystic duct was small . No other abnormalities noted of the specimen . The abdomen irrigated again. No further bleeding noted. Surgicel placed in the liver bed and a flat #10 Silver-Mcgrath drain placed in Ho's pouch and brought out through the right lateral most 5mm trocar incision. The drain secured to the skin with an interrupted silk suture. The fascia of the initial incision closed with 0 Vicryl interrupted sutures The skin incisions close with interrupted 3-0 Vicryl subcutaneous sutures and steri-strips. A total of 30 cc's of 0.5 % Marcaine placed in the skin incisions. Patient extubated and taken to the recovery room in good condi tion. Type of Anesthesia: General Anesthetic w/ETT Findings: as above Specimen/Pathology: gallbladder Type of Fluids Used:: Lactated Ringers EBL: 150 cc Complications:: none Needle/Sponge Count:: correct Disposition/Condition: Pt. tolerated procedure without difficulty. Extubated in the OR and taken to PACU in stable condition.
== END 2022-09-27 11:45 | disposition home or self-care (01) ==
LOC: ER 11:33 → MED/SURG 11:33
PROVIDERS: ADMIT Surgery; ATTEND Surgery
DX: K21.9 Gastro-esophageal reflux disease without esophagitis; K80.00 Calculus of gallbladder with acute cholecystitis without obstruction; R10.11 Right upper quadrant pain; I10 Essential (primary) hypertension